=== PATIENT | female | born 1975 | race Caucasian/White ===

== ENCOUNTER → 2018-06-16 14:00 | Outpatient (CLI) | payer OTHER, SELFPAY ==
[2018-06-20 12:00] LABS: HPV Reflexed? NOT INDICATED
== END ==
PROVIDERS: Visit Provider Obstetrics & Gynecology
DX: Z12.4 Encounter for screening for malignant neoplasm of cervix (principal)
CPT/HCPCS: 88175; G0145

== ENCOUNTER → 2020-05-09 17:24 | Outpatient (CLI) | payer OTHER, SELFPAY | PROVIDERS: PCP Internal Medicine; Referring Provider Otolaryngology; Visit Provider Otolaryngology | DX: Z20.828 Contact with and (suspected) exposure to other viral communicable diseases (principal) | CPT/HCPCS: 87635; C9803; U0003 ==

== ENCOUNTER → 2020-10-02 10:34 | Outpatient (CLI) | payer OTHER, SELFPAY ==
[2020-10-02 09:40] VITALS: BMI 23.7
[2020-10-06 05:11] LABS: HPV APTIMA, High Risk Negative (Negative)
== END ==
PROVIDERS: PCP Internal Medicine; Referring Provider Obstetrics & Gynecology; Visit Provider Obstetrics & Gynecology
DX: Z12.4 Encounter for screening for malignant neoplasm of cervix (principal); Z84.81 Family history of carrier of genetic disease; Z80.3 Family history of malignant neoplasm of breast
CPT/HCPCS: 36415; 87624; 88175; G0145

== ENCOUNTER → 2020-11-17 15:04 | Outpatient (CLI) | payer OTHER, SELFPAY ==
[2020-10-23 11:20] VITALS: BMI 24.0
--- NOTE | 2020-11-17 15:08 | CT_ITS ---
STUDY: CT BRAIN WITHOUT CONTRAST REASON FOR EXAM: Female, 45 years old. MIGRAINE RADIATION DOSAGE (If Supplied By Facility): CTDIvol = ( 44.99 ) mGy, DLP = ( 762.36 ) mGycm TECHNIQUE: Transaxial CT imaging of the brain was performed without administration of intravenous contrast material. Individualized dose optimization techniques were used for this CT. COMPARISON: No relevant priors. FINDINGS: Normal soft tissue structures. Normal calvarium. Normal size ventricles and extra-axial spaces for the patient''s age. Normal white matter tracts of the cerebral hemispheres. Normal basal ganglia and thalami. Normal brainstem. Normal cerebellum. There is no intracranial hemorrhage. There are no findings of an acute ischemic infarction. Normal visualized paranasal sinuses. CT/Brain/Head without Contrast IMPRESSION: Normal unenhanced CT scan of the brain. Electronically Signed: Prince Lynn MD at 15:28 EDT , Service support ,
== END ==
PROVIDERS: PCP Internal Medicine; Referring Provider Internal Medicine; Visit Provider Internal Medicine
DX: G43.909 Migraine, unspecified, not intractable, without status migrainosus (principal)
CPT/HCPCS: 70450

== ENCOUNTER → 2021-12-06 | Outpatient (CLI) | payer OTHER, SELFPAY ==
--- NOTE | 2021-12-06 12:16 | US_ITS ---
STUDY: ULTRASOUND OF THE FEMALE PELVIS - COMPLETE REASON FOR EXAM: Female, 46 years old. enlarged uterus LMP: TECHNIQUE: Transabdominal and Transvaginal TECHNICAL QUALITY: Adequate. COMPARISON: None. FINDINGS: The uterus is anteverted and is in a midline position. The uterus measures 12.8 x 7.5 x 4.0 cm. Normal uterine cervix. The endometrium measures 5 mm in thickness, and is hyperechoic. There is no demonstrated endometrial mass. 3.7 cm isoechoic mass in the left side of the uterus consistent with an intramural fibroid. 2.8 cm isoechoic mass in the right side of the uterus consistent with an intramural fibroid. 1.7 cm exophytic subserosal fibroid of the fundus. I.U.D. - The patient does have an I.U.D. The right ovary is visualized. The right ovary measures 8.2 x 1.8 x 4.7 cm. 8.0 cm oval anechoic mass with increased transmission consistent with a corpus luteum cyst and follow-up ultrasound is recommended in 8-12 weeks. There is no visualized right adnexal mass or complex lesion. There is normal arterial and normal venous vascularity. The left ovary is visualized. The left ovary measures 2.8 x 2.1 x 1.4 cm. There is no left ovarian cyst or ovarian mass. There is no visualized left adnexal mass or complex lesion. There is normal arterial and normal venous vascularity. There is no fluid in the cul-de-sac. The pre void volume of the bladder was ml. The post void volume of the bladder was ml. Polycystic ovary disease: No. US/Pelvic (Non ) IMPRESSION: 1. Enlarged fibroid uterus. 2. 8.0 cm corpus luteum cyst of the right ovary and follow-up ultrasound is recommended in 8-12 weeks. 3. Intrauterine device. Electronically Signed: Ham Carranza MD at 15:58 EDT ,
--- NOTE | 2021-12-06 12:16 | US_ITS ---
STUDY: ULTRASOUND OF THE FEMALE PELVIS - COMPLETE REASON FOR EXAM: Female, 46 years old. enlarged uterus LMP: TECHNIQUE: Transabdominal and Transvaginal TECHNICAL QUALITY: Adequate. COMPARISON: None. FINDINGS: The uterus is anteverted and is in a midline position. The uterus measures 12.8 x 7.5 x 4.0 cm. Normal uterine cervix. The endometrium measures 5 mm in thickness, and is hyperechoic. There is no demonstrated endometrial mass. 3.7 cm isoechoic mass in the left side of the uterus consistent with an intramural fibroid. 2.8 cm isoechoic mass in the right side of the uterus consistent with an intramural fibroid. 1.7 cm exophytic subserosal fibroid of the fundus. I.U.D. - The patient does have an I.U.D. The right ovary is visualized. The right ovary measures 8.2 x 1.8 x 4.7 cm. 8.0 cm oval anechoic mass with increased transmission consistent with a corpus luteum cyst and follow-up ultrasound is recommended in 8-12 weeks. There is no visualized right adnexal mass or complex lesion. There is normal arterial and normal venous vascularity. The left ovary is visualized. The left ovary measures 2.8 x 2.1 x 1.4 cm. There is no left ovarian cyst or ovarian mass. There is no visualized left adnexal mass or complex lesion. There is normal arterial and normal venous vascularity. There is no fluid in the cul-de-sac. The pre void volume of the bladder was ml. The post void volume of the bladder was ml. Polycystic ovary disease: No. US/Transvaginal Non- IMPRESSION: 1. Enlarged fibroid uterus. 2. 8.0 cm corpus luteum cyst of the right ovary and follow-up ultrasound is recommended in 8-12 weeks. 3. Intrauterine device. Electronically Signed: Ham Carranza MD at 15:58 EDT ,
== END | disposition home or self-care (01) ==
PROVIDERS: PCP Internal Medicine; Referring Provider Obstetrics & Gynecology; Visit Provider Obstetrics & Gynecology
DX: N85.2 Hypertrophy of uterus (principal); N83.11 Corpus luteum cyst of right ovary; Z97.5 Presence of (intrauterine) contraceptive device
CPT/HCPCS: 76830; 76856

== ENCOUNTER → 2022-01-21 | Outpatient (CLI) | payer OTHER, SELFPAY ==
--- NOTE | 2022-01-21 12:27 | US_ITS ---
STUDY: ULTRASOUND OF THE FEMALE PELVIS - COMPLETE REASON FOR EXAM: Female, 47 years old. Follow-up cyst LMP: No recent LMP. TECHNIQUE: Transabdominal and Transvaginal TECHNICAL QUALITY: Adequate. COMPARISON: Comparison is made with prior study dated 12/06/2021. FINDINGS: The uterus is anteverted and is in a midline position. The uterus measures 9.6 cm x 6.1 cm x 4.6 cm. Normal uterine cervix. The endometrium measures 6.8 mm in thickness, and is hyperechoic. There is no demonstrated endometrial mass. Several uterine fibroids are seen. The largest on the left side of the body of the uterus measures 3.7 cm x 4 cm x 3.6 cm. I.U.D. - The patient does not have an I.U.D. The right ovary is visualized. The right ovary measures 2.8 cm x 2.6 cm x 2.2 cm. There is no right ovarian cyst or ovarian mass. There is no visualized right adnexal mass or complex lesion. There is normal arterial and normal venous vascularity. The left ovary is visualized. The left ovary measures 2.7 cm x 3.1 cm x 1.7 cm. There is no left ovarian cyst or ovarian mass. There is no visualized left adnexal mass or complex lesion. There is normal arterial and normal venous vascularity. There is no fluid in the cul-de-sac. The pre void volume of the bladder was 448 ml. US/Pelvic (Non ) IMPRESSION: Fibroid uterus. No ovarian cyst is seen at this time. Electronically Signed: Prince Lynn MD at 15:42 EDT ,
--- NOTE | 2022-01-21 12:27 | US_ITS ---
STUDY: ULTRASOUND OF THE FEMALE PELVIS - COMPLETE REASON FOR EXAM: Female, 47 years old. Follow-up cyst LMP: No recent LMP. TECHNIQUE: Transabdominal and Transvaginal TECHNICAL QUALITY: Adequate. COMPARISON: Comparison is made with prior study dated 12/06/2021. FINDINGS: The uterus is anteverted and is in a midline position. The uterus measures 9.6 cm x 6.1 cm x 4.6 cm. Normal uterine cervix. The endometrium measures 6.8 mm in thickness, and is hyperechoic. There is no demonstrated endometrial mass. Several uterine fibroids are seen. The largest on the left side of the body of the uterus measures 3.7 cm x 4 cm x 3.6 cm. I.U.D. - The patient does not have an I.U.D. The right ovary is visualized. The right ovary measures 2.8 cm x 2.6 cm x 2.2 cm. There is no right ovarian cyst or ovarian mass. There is no visualized right adnexal mass or complex lesion. There is normal arterial and normal venous vascularity. The left ovary is visualized. The left ovary measures 2.7 cm x 3.1 cm x 1.7 cm. There is no left ovarian cyst or ovarian mass. There is no visualized left adnexal mass or complex lesion. There is normal arterial and normal venous vascularity. There is no fluid in the cul-de-sac. The pre void volume of the bladder was 448 ml. US/Transvaginal Non- IMPRESSION: Fibroid uterus. No ovarian cyst is seen at this time. Electronically Signed: Prince Lynn MD at 15:42 EDT ,
== END | disposition home or self-care (01) ==
PROVIDERS: PCP Internal Medicine; Visit Provider Obstetrics & Gynecology
DX: D25.9 Leiomyoma of uterus, unspecified (principal)
CPT/HCPCS: 76830; 76856

== ENCOUNTER → 2022-07-05 | Outpatient (CLI) | payer OTHER, SELFPAY ==
[2022-07-05 10:18] LABS: Cholesterol 263 mg/dL (200); High Density Lipoprotein 88 mg/dL; Thyroid Stim Hormone (TSH) 2.48 uIU/mL (0.358-3.74); Triglycerides 87 mg/dL; Very Low Density Lipoprotein 17 mg/dL (5-40)
== END | disposition home or self-care (01) ==
LOC: LAB 08:52
PROVIDERS: PCP Internal Medicine; Referring Provider Internal Medicine; Visit Provider Internal Medicine
DX: E78.5 Hyperlipidemia, unspecified (principal)
CPT/HCPCS: 36415; 80061; 84443

== ENCOUNTER 2022-07-09 05:38 | Day surgery (SDC) | payer OTHER, SELFPAY ==
--- NOTE | 2022-06-28 16:35 | PCM.HP.BLA ---
History and Physical Date of Admission: 07/09/22 Intake Vital Signs ? 01/07/2215:40 06/20/2210:52 06/20/2210:53 Height 5 ft 3 in 5 ft 3 in 5 ft 3 in Weight: ? 134 lb ? BMI ? 23.7 ? BP ? 115/73 ? Intake Visit Reasons:?LAVHBS cystectomy Chief Complaint: pre io LAVH BS Drill Sharpener Required: No Is patient in pain?: No Allergies Penicillins [PCN] Allergy (Verified 05/07/22 10:01) Unknownsuture Allergy (Verified 06/14/22 14:58) POOR HEALING Medications levonorgestrel 20.4 mcg/24 hrs (8 yrs) 52 mg intrauterine device (Liletta) 1 device intrauterine ONCE 10/23/20 [History Confirmed 06/20/22] Is last menstrual period known: No Post menopausal: No Patient : No : No [facility] Medical History? Alcohol use Arthritis Back pain DVT (deep venous thrombosis) Family history of BRCA gene mutation Heartburn Leg cramps Migraine headache Non-smoker Wears contact lenses Surgical History? delivery delivered H/O rhinoplasty Hammer toes, bilateral Previous back surgery S/P cervical spinal fusion S/P eye surgery Family History? Mother Diabetes ParkinsonsFather CAD (coronary artery disease) Diabetes Hypertension GoutGrandmother Breast cancerAunt BRCA gene mutation positive Breast cancerUnknown BRCA gene mutation positive Social History? other:? SAHM Smoking Status:? Never smoker alcohol intake:? current details:? social substance use type:? does not use caffeine:? Yes what type of physical activity do you participate in:? walking frequency:? 3-4 times per week seatbelt use:? always do you feel safe at home:? Yes additional social history:? Dr. Craig- ENT [facility] LAVS cystectomy Details: NICCI DHILLONUR is a 47 year old who presents for preop visit.? she is having a hysterectomy for enlarged uterus and pelvic pain. US findings: 9.6 cm x 6.1 cm x 4.6 cm.? Normal uterine cervix.? The endometrium measures 6.8 mm in thickness, and is hyperechoic.? There is no demonstrated endometrial mass.? Several uterine fibroids are seen.? The largest on the left side of the body of the uterus measures 3.7 cm x 4 cm x 3.6 cm. Female Reproductive History Menopausal Symptoms: No hot flashes, No night sweats, No difficulty concentrating and No change in libido History ? ? ? 2 ? Elective abortions ? Hx Para ? ? ? 2 ? Spontaneous abortions ? Hx # Term Pregnancies ? Ectopic pregnancies ? Hx # Pregnancies ? Multiple births ? # of living children ? Past Pregnancies Del. Date Name GA/Weeks Outcome Route Bth Weight Infant Gen [facility] FOB Unknown 2003 Kristin ? live - full term ? Unknown 2006 Brea ? live - full term ? ROS Const Constitutional: Denies night sweats Cardio Card: Denies chest pain Resp Resp: Denies cough or dyspnea GI GI: Reports as per HPI; Denies abdominal pain, bloating, constipation, nausea or vomiting : Denies hot flashes or nipple discharge Skin Skin/Breast: Denies changing lesions, breast mass, breast pain, breast skin changes or nipple discharge Psych Psych: Denies change in libido or difficulty concentrating Exam Const General: cooperative, healthy appearing, comfortable, no acute distress, well developed and well groomed [facility] Head: normal to inspection and normocephalic Ears: hearing grossly normal bilaterally and external ears normal Nose: external nose normal Face and sinus: normal facial exam Neck Neck: normal visual inspection, full ROM and no lymphadenopathy Thyroid: thyroid normal Resp Effort & Inspection: normal respiratory effort Skin General: no rashes or lesions noted Neuro General: patient alert, moves all extremities and no focal motor deficits Extrem General: normal to inspection and no pedal edema Psych Appearance: grossly normal Mental Status: mental status grossly normal Affect: normal affect Speech and Movement: speech and movement normal Attitude: cooperative Coding Level of Care Code No Charge Diagnoses DVT (deep venous thrombosis)? I82.409 Pelvic pain? R10.2 Enlarged uterus? N85.2 Assessment and Plan Assessment and Plan (1) DVT (deep venous thrombosis): ?Status:?Acute ?Comment: post surgical immobilization. plan perioperative anticoagulation for two weeks postop. 2017 AFTER MICRODISCECTOMY (2) Pelvic pain: ?Status:?Acute (3) Enlarged uterus: ?Status:?Acute ?Comment: discussed options medical vs surgical vs radiologic management, plan [facility] BS Plan After discussing the patient's diagnosis and treatment plan options, patient wishes to proceed with surgical management.? I have discussed with the patient the risks, benefits, and alternatives of the procedure which include but are not limited to risks of anesthesia, bleeding, infection, possible damage to bowel, bladder, or surrounding vasculature which could lead to additional surgery to evaluate any complications.? Patient agrees to procedure and wishes to proceed.? ACOG/uptodate references given for additional information regarding procedure.? UPDATE- I have seen the patient and performed any clinically relevant updates to the history and physical exam. Germaine Barbosa MD Assessment & Plan Assessment/Plan (1) Pelvic pain: (2) DVT (deep venous thrombosis): (3) Enlarged uterus:
[2022-07-05 09:39] LABS: Absolute Lymphocyte Count 2.77 X10^3/uL (0.83-4.51); Absolute Neutrophil Count 4.4 X10^3/uL (2.0-7.7); Basophil# 0.08 X10^3/uL; Eosinophil# 0.14 X10^3/uL; Eosinophils% 1.8 % (0-5); Hemoglobin 15.7 g/dL (12.0-15.0); Lymphocyte # 2.77 X10^3/ul (0.83-4.51); Lymphocyte % 35.3 % (19-41); Mean Corp Hgb Conc 36.5 g/dL (32-36); Mean Corpuscular Hgb 33.4 pg (27.0-32.0); Mean Corpuscular Volume 91.5 fL (81-99); Mean Platelet Vol. 10.6 fl (6.2-12.0); Monocyte# 0.45 X10^3/uL; Monocyte% 5.7 % (0-10); NRBC Flagged by Analyzer 0 % (0-5); Neutrophil % 56.1 % (47-70); Platelet Count 292 K/mm3 (150-450); RBC Distribution Width CV 11.6 % (11.6-14.6); RBC Distribution Width SD 39.1 fl (35.1-43.9); White Blood Count 7.9 K/mm3 (4.4-11.0)
[2022-07-05 10:06] LABS: Magnesium 2.4 mg/dL (1.6-2.6)
[2022-07-09] VITALS (11 sets, daily range): BP systolic 80–106; BP diastolic 51–69; PULSE 55–73; RESP 14–18; TEMP 36.1–37.5; O2SAT 95–100; BMI 23.8
[2022-07-09] MEDS: Phenazopyridine 95 MG Tablet 190 MG PO (06:27)
[2022-07-09] MEDS: Scopolamine 1mg/72hr Patch 1 PATCH TD (06:27)
[2022-07-09] MEDS: Acetaminophen 500 MG Tablet 1000 MG PO ×2 (06:28→12:53)
[2022-07-09] MEDS: Celecoxib 200 MG Capsule 400 MG PO (06:28)
[2022-07-09] MEDS: Gabapentin 600 MG Tablet PO (06:29)
[2022-07-09] MEDS: Enoxaparin 40 MG/0.4 ML Syringe SC (06:41)
[2022-07-09] MEDS: dexAMETHasone 10 MG/ML Vial 8 MG IV (06:55)
[2022-07-09] MEDS: Lactated Ringers 1,000 ML 40 ML IV ×2 (06:59→10:54)
[2022-07-09] MEDS: Magnesium 1 GM over 15 mins IV (07:30)
--- NOTE | 2022-07-09 07:30 | HYST_PTH ---
PATIENT: NICCI CREWS LOC: [facility] U#:[id number] AGE/SX: 47/F ROOM: RE07/09/[address]: Dr. Germaine Barbosa MD : 1975 BED: DIS: 07/09/2022 SPEC #: [id number] RECD: 07/09/22 13:21 STATUS: NAZIA HILLIARD #: [id number] ONEIL: 07/09/22 07:[address]: Germaine Barbosa DEPT: SURGICAL PATHOLOGY RECD BY: Dirk Appiah ENTERED: 07/09/22 13:40 SP TYPE: HYSTERECT OTHR DR: MD Dr. Carri Quintanilla, Tissues: Uterus, NOS Procedures: Surgery Specimen Level V HEADER OPERATION: BISI MORALES, salpingectomy PRE-OP DIAGNOSIS: Deep venous thrombosis, pelvic pain, enlarged uterus TISSUE SUBMITTED: Uterus, bilateral fallopian tubes MICROSCOPIC DIAGNOSIS Uterus, hysterectomy: Cervix ? nabothian cysts and mild chronic inflammation. Endometrium ? secretory endometrium. Myometrium ? leiomyomas and adenomyosis. Right and left fallopian tubes - no pathologic change. AM:sal 07/10/2022 COMMENT Case has been reviewed in consultation with Dr. Caicedo who concurs with the above diagnosis. IDC:SJ MICROSCOPIC DESCRIPTION Slides are reviewed. GROSS DESCRIPTION Received in fixative is one container labeled with the patient's name and designated uterus, bilateral fallopian tubes. The specimen consists of a hysterectomy specimen consisting of uterus, cervix and bilateral fallopian tube in three pieces. The uterus with cervix in multiple pieces weighs 160 gm. A piece consists of one-half of the cervix and portion of lower uterine segment and measures 6 x 3 x 2 cm. The endocervical canal in this portion measures 3.5 cm in length. The endocervical mucosa is unremarkable. The endometrial cavity in this portion consisting of lower uterine segment and measures 3 cm in length. A nodular mass is also noted measuring 1.5 cm in greatest dimension. Detached piece of uterus measures 5 x 3 x 2 cm. The largest piece of uterus consisting of a portion of body of uterus and cervix measures 12 x 8 x 7 cm. The endocervical canal measures 3.5 cm in length. The endometrial cavity measures 4.5 cm in length and up to 2 cm in width. The endometrial cavity appears to be compressed on one side. The endometrium is borden, glistening without any mass lesion and measures <0.1 cm in thickness. Sections of the uterine wall reveal multiple intramural and subserosal nodular masses. The largest mass measures 3.5 cm in greatest dimension. Sections of these masses reveal borden whorled cut surfaces without areas of hemorrhage, necrosis or cystic degeneration. The uterine wall measures up to 2.5 cm in thickness. The uterus could not be oriented due to fragmentation. The bilateral fallopian tubes could not be oriented as right or left due to nature of the specimen. Both fallopian tubes measure 6 cm in length and 0.5 cm in diameter. The fimbrial end is identified. Sections reveal unremarkable cut surfaces. Pi/Senior Research Associate sections are submitted in 11 cassettes as follows: 1?&?2 - cervix, 3-6 - uterine wall, 7??largest nodular mass, 8 - second largest nodular mass, 9 - smaller nodular masses, 10 - one fallopian tube, 11 - second fallopian tube. / BRITTON:sal 07/09/2022 TC:1 CPT: 99779
[2022-07-09 07:35] LABS: Bedside Glucose 115 mg/dL (74-106)
[2022-07-09] MEDS: Clindamycin 900 MG/50 ML BAG 75 MG IV (07:47)
[2022-07-09] MEDS: Lubricating Jelly 60 GM Tube 30 GM (07:56)
[2022-07-09] MEDS: Bupivacaine Mpf 0.5% 30 ML VIAL (08:00)
[2022-07-09] MEDS: Vasopressin 20 UNITS/ML Vial (08:31)
--- NOTE | 2022-07-09 09:36 | PCM.OPRPT ---
Problems Associated Problem List Diagnoses (1) DVT (deep venous thrombosis): (2) Pelvic pain: (3) Enlarged uterus: Report of Operation Date of Procedure: 07/09/22 Pre-Operative Diagnosis: AUB Post-Operative Diagnosis: same Surgery/Procedure Performed:: LAVHBS Description of Surgical Findings:: enlarged uterus with thick vesicouterine adhesions enlarged fibroid uterus employee relations consultant: Gabby Heller Type of Anesthesia: General Specimen's removed: uterus, tubes Drains: pearson Estimated Blood Loss (mL): 200 Fluids Replaced: crystalloid Description of Procedure: Patient received preoperative antibiotics and SCDs were on preoperatively. Patient was taken back to the operating room and placed in the dorsal lithotomy position. General anesthesia was induced and patient was prepped and draped in normal sterile fashion. Uterine manipulator was placed inside the uterus and Pearson catheter placed in the bladder. The umbilicus was grasped with towel clamps and an intraumbilical incision was made after injecting with quarter percent Marcaine and a Veress needle entered into the abdomen confirmed to be intra-abdominal with a low opening pressure. Abdomen was insufflated with CO2 gas and the Veress needle removed and the 5 mm trocar was placed under direct visualization without complication. Right and left lower quadrants were transilluminated and injected with quarter percent Marcaine and 5 mm ports placed under direct visualization. Pelvis was well visualized see operative findings for additional information. Bilateral fallopian tubes were identified and transected with the LigaSure device across the mesosalpinx to the level of the utero-ovarian ligament which was also transected with the LigaSure device. The broad ligament was opened up by transecting the round ligament bilaterally and skeletonizing the uterine vessels bilaterally and creating a bladder flap using the LigaSure device. The uterine arteries were transected bilaterally with good visualization of the bladder and the ureters were seen to be inferior lateral to the operative area. Attention was then paid to the vaginal portion of the procedure and the cervix was grasped with Janice clamps and circumferentially injected with dilute vasopressin. A circumferential incision was made and the vaginal mucosa was mobilized off posteriorly and the cul-de-sac entered into sharply and a longneck speculum placed. The anterior cul-de-sac was then identified and entered into sharply. The uterosacral ligaments were clamped cut and suture ligated with 0 Monocryl bilaterally followed by the cardinal ligaments which were clamped cut and suture ligated bilaterally with 0 Monocryl. The uterus serially descended and was removed without difficulty. Pelvic sidewall pedicles were checked and the left side wall stitches had slid off and therefore were oversewn with 0 monocryl an the posterior peritoneum was closed with 3-0 monocryl. The vaginal mucosa was reapproximated incorporating the posterior peritoneum. This was reapproximated using 0 monocryl [id number] sutures. Excellent hemostasis was noted. The pelvis and cul-de-sac were well visualized and some areas along the peritoneal edge noted and were treated with monopolar energy, and floseal applied over the cuff. Pressure was taken down and the areas visualized and noted of excellent hemostasis. All ports were removed under direct visualization without complication and the abdomen was desufflated of air. The instruments were removed from the abdomen and the vaginal sweep was negative. Port sites on the abdomen were closed with 4-0 Monocryl interrupted sutures and Steri's and windows were applied. She was awoken and taken recovery in stable condition. Grafts/Implants Used: none Complications none Admit VTE Documentation VTE Present on Admission: No VTE Mechan Device Prophylaxis: SCD's VTE Pharm Prophylaxis ordered?: Yes Procedures Urinary/Genital 52xxx-59xxx: 36337 LAVH+BS/O <250gr Uterus
--- NOTE | 2022-07-09 09:43 | DCINST_ITS ---
Discharge Instructions Diet Discharge Diet: No restrictions Activity May resume sexual activity in: 6 weeks Weight Bearing Status: Full weight bearing Dressing / Incision Call your doctor if your incision/area has: Continuous Slow Oozing, Sudden Increased Bleeding, Increased Pain/ Swelling, Increased Redness and Foul Smelling Discharge Call your doctor if you observe: Fever of 101 or Higher, Using more than 1 pad per hour, Shortness of breath, Chest pain and Uncontrolled pain Suture Line Care: Avoid Pulling/Pushing and Avoid Pinching/Bending Remove Dressing in: 1 week (if present) Cleanse incision/area with: Soap & Water and Keep Dressing Clean & Dry Follow Up Care Please Follow Up With: Germaine Barbosa MD When: Call to make an appointment with your doctor for a postop visit in 2 and 6 weeks. Test Results: Test results from this visit will be discussed in further detail at your follow- up appointment, if applicable. Discharge Plan Admission Attending Provider: Germaine Barbosa Primary Care Provider: Carri Sanderson Consulting Providers: Grady Wayne Discharge Orders/Prescriptions Prescriptions: New oxycodone-acetaminophen [Percocet] 5-325 mg tablet 1 tab PO Q6H PRN (Reason: pain) 7 Days Qty: 20 0RF naproxen [naproxen] 500 mg tablet 500 mg PO BID PRN PRN (Reason: Pain) Qty: 30 1RF enoxaparin [Lovenox] 40 mg/0.4 mL syringe 40 mg SQ DAILY 14 Days Qty: 20 1RF Continued multivitamin Capsule 1 cap PO DAILY Discontinued Liletta 20.1 mcg/24 hrs (6 yrs) 52 mg intrauterine device 1 device INTRA-UTER ONCE Rx Instructions: as a single dose Other Ambulatory Orders: ,Urine (Routine) Timeframe: [id number] Facility: [facility] - Location: Laboratory Ordered By: Dr. Germaine Barbosa Referrals / Follow Up: Carri Sanderson DO [Primary Care Provider] - Disposition Disposition (needs filled in before D/C Order can be placed): Home, Self Care
[2022-07-09] MEDS: Ketorolac 30 MG/ML Syringe IV (10:52)
[2022-07-09 12:48] LABS: Hematocrit 37.6 % (37-47); Hemoglobin 13.6 g/dL (12.0-15.0); Mean Corp Hgb Conc 36.2 g/dL (32-36); Mean Corpuscular Hgb 33.7 pg (27.0-32.0); Mean Corpuscular Volume 93.1 fL (81-99); Mean Platelet Vol. 10.3 fl (6.2-12.0); Platelet Count 240 K/mm3 (150-450); RBC Distribution Width CV 11.8 % (11.6-14.6); RBC Distribution Width SD 39.8 fl (35.1-43.9); Red Blood Count 4.04 M/mm3 (4.2-5.4); White Blood Count 13.7 K/mm3 (4.4-11.0)
[2022-07-09 14:38] LABS: Absolute Lymphocyte Count 1.19 X10^3/uL (0.83-4.51); Absolute Neutrophil Count 10.2 X10^3/uL (2.0-7.7); Basophil# 0.02 X10^3/uL; Basophil% 0.2 % (0-1); Hematocrit 37.2 % (37-47); Hemoglobin 13.2 g/dL (12.0-15.0); Lymphocyte # 1.19 X10^3/ul (0.83-4.51); Lymphocyte % 10.3 % (19-41); Mean Corp Hgb Conc 35.5 g/dL (32-36); Mean Corpuscular Hgb 32.8 pg (27.0-32.0); Mean Corpuscular Volume 92.5 fL (81-99); Mean Platelet Vol. 10.3 fl (6.2-12.0); Monocyte# 0.11 X10^3/uL; NRBC Flagged by Analyzer 0 % (0-5); Neutrophil # 10.21 X10^3/uL (2.7-7.7); Neutrophil % 88.2 % (47-70); Platelet Count 261 K/mm3 (150-450); RBC Distribution Width CV 11.7 % (11.6-14.6); RBC Distribution Width SD 39.4 fl (35.1-43.9); Red Blood Count 4.02 M/mm3 (4.2-5.4); White Blood Count 11.6 K/mm3 (4.4-11.0)
== END 2022-07-09 15:29 | disposition home or self-care (01) ==
LOC: SDC 05:38 → AC 05:38
PROVIDERS: Anesthesiology; PCP Internal Medicine; Referring Provider Obstetrics & Gynecology; Visit Provider Obstetrics & Gynecology
PROC: 0UT9FZZ Resection of Uterus, Via Natural or Artificial Opening With Percutaneous Endoscopic Assistance (ICD-10-PCS; CPT 58552; principal; 2022-07-09 07:05)
DX: N93.9 Abnormal uterine and vaginal bleeding, unspecified (principal); I82.409 Acute embolism and thrombosis of unspecified deep veins of unspecified lower extremity; D25.9 Leiomyoma of uterus, unspecified; K66.0 Peritoneal adhesions (postprocedural) (postinfection); N85.2 Hypertrophy of uterus; Z86.16 Personal history of COVID-19
CPT/HCPCS: 58552; 36415; 82962; 83735; 85025; 85027; 86850; 86900; 86901; 88307; J7120; J2405; J3475

== ENCOUNTER → 2022-08-22 | Outpatient (CLI) | payer OTHER, SELFPAY ==
--- NOTE | 2022-08-22 | VAGMU_PTH ---
PATIENT: NICCI CREWS [facility] U#:[id number] AGE/SX: 47/F ROOM: RE08/22/[address]: Dr. Germaine Barbosa MD : 1975 BED: DIS: 08/22/2022 SPEC #: [id number] RECD: 08/22/22 12:03 STATUS: NAZIA REQ #: [id number] ONEIL: 08/22/22 00:[address]: Germaine Barbosa DEPT: SURGICAL PATHOLOGY RECD BY: Jonelle Horn ENTERED: 08/22/22 12:56 SP TYPE: VAG MUCOSA OTHR DR: Dr. Carri Sanderson DO Tissues: Vagina, NOS Procedures: Special Stain Group II Special Stain Group I Surgery Specimen Level IV GMS Stain (control) Iron Stain (control) HEADER OPERATION: Vaginal cuff tissue removal PRE-OP DIAGNOSIS: Vaginal cuff TISSUE SUBMITTED: Granulation tissue MICROSCOPIC DIAGNOSIS Vaginal cuff granulation tissue, biopsy: Fibrovascular tissue with autolytic changes. Fibrinopurulent material. Extraneous pigment deposits. Negative for fungal organisms. No evidence of malignancy. AM:sal 08/23/2022 COMMENT GMS and Iron stains with matched controls support the diagnosis. Case has been reviewed in consultation with Dr. Caicedo who concurs with the above diagnosis. IDC:SJ MICROSCOPIC DESCRIPTION Slides are reviewed. GROSS DESCRIPTION Received is one container labeled with the patient's name and not further designated. The specimen consists of a single irregular fragment of borden-greenish soft tissue measuring 1.5 x 1.2 x 0.2 cm. The specimen is totally submitted in one cassette. / AM:sal 08/22/2022 TC:2 CPT: 98004., 66961, 22837
== END | disposition home or self-care (01) ==
LOC: LABSPEC 12:23
PROVIDERS: PCP Internal Medicine; Visit Provider Obstetrics & Gynecology
DX: N76.89 Other specified inflammation of vagina and vulva (principal)
CPT/HCPCS: 88304; 88305; 88312; 88313

== ENCOUNTER → 2024-01-21 | Outpatient (CLI) | payer BC, SELFPAY ==
--- NOTE | 2024-01-21 10:53 | US_ITS ---
STUDY: ULTRASOUND OF THE FEMALE PELVIS - LIMITED REASON FOR EXAM: Female, 49 years old pelvic pain RIGHT -- S/P HYSTERECTOMY 22 TECHNIQUE: Transabdominal and Transvaginal TECHNICAL QUALITY: Adequate. COMPARISON: Comparison is made with prior study dated January 21, 2022. FINDINGS: The patient is status post hysterectomy. The right ovary measures 3.8 cm x 4.9 cm x 2.7 cm. There is a 2.9 sided by 3.3 cm x 1.9 cm simple cyst in the right ovary. There is no visualized right adnexal mass or complex lesion. There is normal arterial and normal venous vascularity. The left ovary measures 2.3 cm x 2.3 cm x 1.7 cm. There is no left ovarian cyst or ovarian mass. There is no visualized left adnexal mass or complex lesion. There is normal arterial and normal venous vascularity. There is no fluid in the cul-de-sac. US/Pelvic w/ Transvaginal IMPRESSION: Status post hysterectomy. 2.9 cm x 3.3 cm x 1.9 cm simple right ovarian cyst. Electronically Signed: Prince Lynn MD at 12:05 EDT ,
== END | disposition home or self-care (01) ==
LOC: US 10:51
PROVIDERS: PCP Internal Medicine; Referring Provider Obstetrics & Gynecology; Visit Provider Obstetrics & Gynecology
DX: R10.2 Pelvic and perineal pain (principal)
CPT/HCPCS: 76830; 76856

== ENCOUNTER → 2024-01-22 | Outpatient (CLI) | payer BC, SELFPAY | END | disposition home or self-care (01) | PROVIDERS: PCP Internal Medicine; Visit Provider Obstetrics & Gynecology | DX: R10.2 Pelvic and perineal pain (principal) | CPT/HCPCS: 87086 ==

== ENCOUNTER → 2024-03-08 | Outpatient (CLI) | payer BC, SELFPAY ==
--- NOTE | 2024-03-08 14:11 | CT_ITS ---
STUDY: CT ABDOMEN AND PELVIS WITH CONTRAST REASON FOR EXAM: Female, 49 years old. Pelvic and right lower quadrant pain. Prior hysterectomy. RADIATION DOSAGE (If Supplied By Facility): CTDIvol = ( 4.93 ) mGy, DLP = ( 332.10 ) mGycm TECHNIQUE: Transaxial images were obtained from the dome of the diaphragm to the symphysis pubis with oral contrast. Oral and amp; IV Redi-CAT and amp; 100mL Isovue-300 was administered. Sagittal and coronal images were reconstructed. Individualized dose optimization techniques were used for this CT. COMPARISON: None. FINDINGS: The visualized lung bases are unremarkable. The visualized portions of the heart are within normal limits. Normal liver. Normal gallbladder and extrahepatic biliary system. Normal spleen. Normal pancreas. Normal bilateral adrenal glands. Normal right kidney. Normal left kidney. Normal visualized stomach. Normal small intestine. Normal colon. There is non-visualization of the appendix. Normal abdominal aorta. Normal inferior vena cava. Normal retroperitoneum. Normal urinary bladder. There is absence of the uterus consistent with a prior hysterectomy. There is a 2.3 cm x 2 cm right ovarian cyst. Small amount of fluid is seen in the cul-de-sac. Normal abdominal wall. Marked degree of disc space narrowing at the L5-S1 level. CT/Abdomen/Pelvis WITH Contrast IMPRESSION: Status post hysterectomy. 2.3 cm x 2 cm right ovarian cyst. Small amount of free fluid in the cul-de-sac. Electronically Signed: Prince Lynn MD at 15:01 EDT ,
--- NOTE | 2024-03-10 13:42 | NURSING ---
pt called in and talked to this rn stating that she had a ct scan done on 03/08/24 with iv contrast. pt states that beginning 03/09/24, near the iv site, she developed a red 1 inch in diameter raised, itchy nooksack. pt wondering if an incident report needed filed. this rn informed pt to apply a warm compress to the area and to watch for any signs/symptoms of infection. pt informed to call her dr if developed any signs/symptoms of infection. this rn informed pt that ct scan was completed with contrast. pt also aware that there was no infiltration of the iv site. pt had the ct scan done 03/08/24 and itchiness, redness did not occur until 03/09/24. this rn got pts name and number and informed pt that we will call her back 03/11/24 and 03/16/24 to check to see if redness, itchiness is improving. pt agreeable to this.
--- NOTE | 2024-03-11 10:53 | NURSING ---
this rn made follow up call to pt regarding redness, itchiness at right arm iv site. pt states it is less itchy today and slightly less red. states there is now a white dot in the middle of the red area. pt states it could be a bite from something. pt states will watch the area over the weekend. this rn will call pt back on 03/16/24. pt aware.
--- NOTE | 2024-03-16 09:40 | NURSING ---
this rn called to check on red, itchy area on pts r arm near where iv site was on 03/08/24, no answer. msg left
== END | disposition home or self-care (01) ==
LOC: CT 14:03
PROVIDERS: PCP Internal Medicine; Referring Provider Obstetrics & Gynecology; Visit Provider Obstetrics & Gynecology
DX: R10.2 Pelvic and perineal pain (principal)
CPT/HCPCS: 74177; Q9967